=== PATIENT | male | born 1955 | race Caucasian/White ===

== ENCOUNTER 2017-05-01 13:10 | Emergency (ER) | payer BC ==
[2017-05-01 14:40] VITALS: BP 139/94
--- NOTE | 2017-05-01 15:45 | UC ---
Throat Pain/Nasal Brent HPI - HPI Summary HPI Summary: Pt presents with sinus / head congestion x 2-3 weeks. Pt reports initially had fevers + thick secretions mild PND + b/l ear fullness. + motrin with relief. Pt has nasal spray has used this am for first time with relief. No body aches. No rash + dental pain + improve with shower Pt's medications reviewed this visit - History of Current Complaint Chief Complaint: UCGeneralIllness Stated Complaint: SINUS Time Seen by Provider: 05/01/17 15:42 Hx Obtained From: Patient Onset/Duration: Gradual Onset Severity: Mild Pain Intensity: 3 Cough: Nonproductive Associated Signs & Symptoms: Positive: Sinus Discomfort, Nasal Discharge - Allergies/Home Medications Allergies/Adverse Reactions: Allergies Allergy/AdvReac Type Severity Reaction Status Date / Time pseudoephedrine Allergy Shakes Verified 05/01/17 14:33 [From Sudafed] Home Medications: Home Medications Ibuprofen [Goodsense Ibuprofen] 400 mg PO 05/01/17 [History] PMH/Surg Hx/FS Hx/Imm Hx Previously Healthy: Yes - Surgical History Surgical History: Yes Surgery Procedure, Year, and Place: C5 C6 Discectomy, 1991, [place] - Family History Known Family History: Positive: None Negative: Hypertension Family History: no known cardio vascular issues in bio family - Social History Occupation: Employed Full-time Lives: With Family Alcohol Use: Occasionally Substance Use Type: None Smoking Status (MU): Never Smoked Tobacco - Immunization History Most Recent Influenza Vaccination: November 2015 Review of Systems Constitutional: Fever Skin: Negative Eyes: Negative ENT: Nasal Discharge, Sinus Congestion, Sinus Pain/Tenderness Respiratory: Cough Cardiovascular: Negative Gastrointestinal: Negative Genitourinary: Negative Musculoskeletal: Negative Is Patient Immunocompromised?: No All Other Systems Reviewed And Are Negative: Yes Physical Exam Triage Information Reviewed: Yes Appearance: Well-Appearing, No Pain Distress, Well-Nourished Vital Signs: Initial Vital Signs Temp 98.5 F 05/01/17 14:34 Pulse 74 05/01/17 14:34 Resp 16 05/01/17 14:34 BP 139/94 05/01/17 14:34 Pulse Ox 99 05/01/17 14:34 Vital Signs Reviewed: Yes Eye Exam: Normal Eyes: Positive: Conjunctiva Clear ENT: Positive: Nasal congestion, Nasal drainage, Sinus tenderness, Uvula midline , Other - TM x 2 scant fluid R>L turbinates inflammed and boggy + PND uvula midline no erythema, no exudate max sinus tender R>l. Negative: Tonsillar swelling, Tonsillar exudate Dental Exam: Normal Neck exam: Normal Neck: Positive: Supple, Nontender, No Lymphadenopathy Respiratory Exam: Normal Respiratory: Positive: Chest non-tender Cardiovascular Exam: Normal Abdominal Exam: Normal Musculoskeletal Exam: Normal Neurological Exam: Normal Psychological Exam: Normal Skin Exam: Normal Throat Pain/Nasal Course/Dx - Course Course Of Treatment: Ptw ith haad congestion congestion, sinus pressure x 3 weeks. clinically sinusisit. pt has nasal spray - recommend resume use. z pack. secretion hygeine. motirn/apap. humidfy air. return precautions - Differential Dx/Diagnosis Provider Diagnoses: sinusitis Discharge - Discharge Plan Condition: Stable Disposition: HOME Prescriptions: Azithromycin TAB* [Zithromax TAB (Z-AWILDA) 250 mg #6 tabs] 2 tab PO .TODAY, THEN 1 DAILY #1 awilda Patient Education Materials: Sinusitis (ED) Referrals: No Primary Care Phys,NOPCP [Primary Care Provider] - Additional Instructions: - Stay well hydrated. Drink plenty of non-alcoholic, non-caffianted beverages - Take antibiotics as prescribed - use nasal spray daily as prescribed - These infections are spread by oral secretions. Do not share eating or drinking utensils. Frequent hand washing is important. Clean items that may get your secretions on them such as cell phones, ipads, computer mouse, television remotes. It is recommended after 48 hours on antibiotics, change your tooth brush and your pillowcase - humidify the air in the room where you sleep - boil water, run a hot steam shower, vaporizer, cups of water by heat register -Contact your doctor or return with questions or concerns r
== END 2017-05-01 16:02 | disposition home or self-care (01) ==
LOC: UCCORT 13:10
DX: J32.9 Chronic sinusitis, unspecified (principal)
CPT/HCPCS: 99212; G0463

== ENCOUNTER 2018-07-11 13:09 | Emergency (ER) | payer BC ==
[2018-07-11 13:48] VITALS: BP 150/93
--- NOTE | 2018-07-11 14:31 | UC ---
Back Pain HPI - HPI Summary HPI Summary: Pt presents with c/o right hip, upper lateral thigh and knee pain X 2 weeks. Pt has been seeing his chiropractor, had pelvis and hip xray done here yesterday. I reviewed xrays, no acute injury, no active disease - History of Current Complaint Chief Complaint: UCLowerExtremity Stated Complaint: LOWER BACK PAIN Time Seen by Provider: 07/11/18 14:11 Hx Obtained From: Patient Onset/Duration: Sudden Onset, Lasting Weeks, Still Present Timing: Constant Severity Initially: Mild Severity Currently: Moderate Pain Intensity: 8 Back Pain: Is Discrete @ - right hip, Radiates To - laterl upper leg and knee Character: Dull, Aching, Burning Aggravating Factor(s): Movement, Lifting, Bending, Walking Alleviating Factor(s): Nothing Related History: Similar Episode Dx As - sciatica by chiroparctor - Risk Factors AAA Risk Factors: Negative TAD Risk Factors: Negative Cauda Equina Risk Factors: Negative Epidural Abscess Risk Factors: Negative - Allergies/Home Medications Allergies/Adverse Reactions: Allergies Allergy/AdvReac Type Severity Reaction Status Date / Time pseudoephedrine Allergy Shakes Verified 05/01/17 14:33 [From Jesús] PMH/Surg Hx/FS Hx/Imm Hx Previously Healthy: Yes Cardiovascular History: Hypertension - Surgical History Surgical History: Yes Surgery Procedure, Year, and Place: C5 C6 Discectomy, 1991, [place] - Family History Known Family History: Positive: None Negative: Hypertension Family History: no known cardio vascular issues in bio family - Social History Occupation: Employed Full-time Lives: With Family Alcohol Use: Occasionally Substance Use Type: None Smoking Status (MU): Never Smoked Tobacco Have You Smoked in the Last Year: No - Immunization History Most Recent Influenza Vaccination: November 2015 Vaccination Up to Date: No Review of Systems All Other Systems Reviewed And Are Negative: Yes Constitutional: Positive: Negative Skin: Positive: Negative Eyes: Positive: Negative ENT: Positive: Negative Respiratory: Positive: Negative Cardiovascular: Positive: Negative Gastrointestinal: Positive: Negative Genitourinary: Positive: Negative Motor: Positive: Negative Neurovascular: Positive: Negative Musculoskeletal: Positive: Arthralgia, Myalgia Neurological: Positive: Negative Psychological: Positive: Negative Is Patient Immunocompromised?: No Physical Exam Triage Information Reviewed: Yes Appearance: Pain Distress Vital Signs: Initial Vital Signs Temp 97.9 F 07/11/18 13:43 Pulse 76 07/11/18 13:43 Resp 16 07/11/18 13:43 BP 150/93 07/11/18 13:43 Pulse Ox 99 07/11/18 13:43 Vital Signs Reviewed: Yes Eye Exam: Normal ENT Exam: Normal Dental Exam: Normal Neck exam: Normal Respiratory Exam: Normal Musculoskeletal: Positive: Strength Intact, ROM Intact Neurological Exam: Normal Psychological Exam: Normal Skin Exam: Normal Back Pain Course/Dx - Differential Dx/Diagnosis Differential Diagnosis/HQI/PQRI: Arthritis, Herniated Disc, Strain, Sprain Provider Diagnosis: Right hip pain, Low back pain, Right leg pain Discharge - Sign-Out/Discharge Documenting (check all that apply): Patient Departure All imaging exams completed and their final reports reviewed: No Studies - Discharge Plan Condition: Stable Disposition: HOME Prescriptions: Cyclobenzaprine TAB* [Flexeril 10 MG TAB*] 10 mg PO Q8H PRN #15 tab PRN Reason: Pain predniSONE TAB* [Deltasone 10 MG TAB*] 30 mg PO DAILY #12 tab Patient Education Materials: Sciatica (ED), Arthralgia (ED), Lower Back Exercises (ED) Referrals: [facility] [place] [facility] REFERRAL [Outside] - If Needed No Primary Care Phys,NOPCP [Primary Care Provider] - - Billing Disposition and Condition Condition: STABLE Disposition: Home
== END 2018-07-11 14:40 | disposition home or self-care (01) ==
LOC: UCCORT 13:09
DX: M25.551 Pain in right hip (principal); M79.651 Pain in right thigh; M25.561 Pain in right knee; M54.5 Low back pain; I10 Essential (primary) hypertension; Z88.8 Allergy status to other drugs, medicaments and biological substances
CPT/HCPCS: 99212; G0463

== ENCOUNTER → 2019-02-17 11:55 | Day surgery (SDC) | payer BC ==
[~2019-02-17 11:55] MED LIST: Atracurium* 10 MG/ML 10 ML VIAL ONE; Buffered Lidocaine 1% SYRIN* 1 ML/SYRINGE INTRADERM ONE; Bupivacaine 0.25% SDV PF* 10 ML VIAL INJ ONE; Dexamethasone IV* 4 MG/ML 1 ML (4 MG) IV SLOW PU ONE; Dexamethasone IV* 4 MG/ML 1 ML (4 MG) ONE; DiMENhydriNATE IV* 50 MG/ML VIAL IV PUSH PRN; Famotidine IV* 10 MG/ML 2 ML (20 mg) IV ONE; Famotidine IV* 10 MG/ML 2 ML (20 mg) ONE; Glycopyrrolate IV* 0.2 MG/ML 1 ML VIAL ONE; Ketorolac INJ* 30 MG/ML 1 ML VIAL ONE; Lactated Ringers 1000 ML Bag* 1,000 ML IV SCH; Lidocaine 2% PF * 5 ML VIAL ONE; Midazolam* 1 MG/ML 5 ML VIAL (5 MG) ONE; Naloxone* 0.4 MG/ML 1 ML VIAL IV PRN; Ondansetron INJ* 2 MG/ML VIAL IV PRN; Ondansetron INJ* 2 MG/ML VIAL ONE; Propofol* 10 MG/ML 20 ML BTL ONE; Rocuronium* 10 MG/ML VIAL ONE; Scopolamine 1.5 mg* PATCH TRANSDERM PRN; ceFAZolin 2 GM PREMIX in ORs 2 GM/50 ML BAG ONE; fentaNYL* 50 MCG/ML 2 ML VIAL (100 MCG VIAL) ONE; fentaNYL* 50 MCG/ML 5 ML VIAL (250 MCG VIAL) ONE; oxyCODONE/Acetamin 5/325 MG* TAB PO PRN
[2019-02-17] MEDS: fentaNYL* 50 MCG/ML 2 ML VIAL (100 MCG VIAL) IV PRN ×2 (18:56→19:00)
[2019-02-17 20:04] VITALS: BP 153/100
--- NOTE | 2019-02-17 21:16 | OP ---
DATE OF OPERATION: 02/17/19 - [facility] DATE OF : 57 SURGEON: Emmanuel Mcgrath MD MATERIAL EXPEDITOR: JOEY Barr. An wet process miller head assistant was needed for the entirety of the procedure to aid in positioning of the arm and retraction. ANESTHESIOLOGISTS: Dr. Farah, followed by Dr. Gordon. ANESTHESIA: General. 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 OPERATIVE PROCEDURES: 1. Right thumb carpometacarpal joint arthroplasty with trapeziectomy. 2. Distally based split flexor carpi radialis tendon transfer for thumb suspension and tendon interposition. INDICATIONS: Mr. Ely has the basal joint arthritis. He has dealt with it for quite sometime. He is finally to the point where he wants to proceed with surgery to see if he can get relief for the pain. We had talked about risks and benefits, and he wanted to proceed. ESTIMATED BLOOD LOSS: 5 mL. COMPLICATIONS: None. FINDINGS: See above and below. DESCRIPTION OF PROCEDURE: Mr. Ely was seen in the preoperative holding area. The correct side, site, and procedures were identified. We came back to the operating room. The arm was prepped and draped in the usual fashion and a time-out was performed. The arm was exsanguinated with the Esmarch and the tourniquet was inflated to 250 mmHg. I made a 2 to 3 cm incision over the metacarpal base. Dissection was carried down longitudinally to preserve the sensory nerves. The fascial layer overlying the radial artery was identified. The radial artery was mobilized and retracted out of the way. I raised subperiosteal and capsular flaps to expose the trapezium. The trapezium was excised in its entirety. Once the trapezium was fully excised, I took sequentially larger drill bits and I drilled a bone tunnel from the dorsal radial aspect of the metacarpal base exiting out the volar ulnar articular surface near the insertion of the FCR tendon. The scapho-trapezoid joint was looked at, this looked god. I then made a 1-cm incision over the distal aspect of the FCR tendon. The tendon sheath was opened. The tendon was brought up out of the wound. The tendon was split longitudinally with a 15 blade and a 26-gauge wire was passed into the tendon split. At intervals, I made 2 more 1-cm incisions over the tendon. The sheath was released along the course of the tendon. I then used a Faviola clamp to retrieve the wire under the skin and pulled it up into the proximal wound releasing half the tendon at the musculotendinous junction. Free end of the tendon was then delivered down into the metacarpal base wound. Free tail was taken through the bone tunnel and the back around the intact limb. Maximum tension was set, as the tendon transfer was secured with multiple 3-0 [id number] Ethibond sutures. First sewing all 3 limbs of the tendon transfer together, the last 2 sewing intact limb to intact limb. The remainder of the tendon was rolled up as a ball and secured with 3-0 Ethibond suture and placed as an interposition between the base of the metacarpal and the distal pole of the scaphoid. The wound was irrigated out. The capsule was closed with 4-0 Vicryl suture. Skin was closed with 4-0 nylon suture. 0.25% plain Marcaine was infiltrated all about the operative areas. The wounds were dressed with Xeroform, 4x4s, sterile Webril and a thumb spica split with the IP joint free was applied. He was taken to the recovery room in stable condition. [id number]/[facility] #: [id number] [facility] HOSPITALFabian
== END | disposition home or self-care (01) ==
LOC: OR 11:55
PROVIDERS: ATTEND Orthopaedic Surgery Hand Surgery
DX: M18.11 Unilateral primary osteoarthritis of first carpometacarpal joint, right hand (principal); I10 Essential (primary) hypertension
CPT/HCPCS: J0690; J1100; J1885; J2250; J2405; J2704; J3010; J3490